=== PATIENT | male | born 1985 | race Two or more races ===

== ENCOUNTER 2018-08-18 21:03 | Emergency (ER) | payer SELFPAY ==
[~2018-08-18] VITALS: Ht 167.6 cm; Wt 68.0 kg
--- NOTE | 2018-08-18 21:05 | NUR ---
PER MD VARNER CALL 911, DR. VARNER INFORMED OF NO ACCEPTING FACILITY. DR VARNER ORDERED STAFF TO CALL 911 ANYWAY.
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
[2018-08-18 21:17] VITALS: BP 203/114
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
--- NOTE | 2018-08-18 21:24 | NUR ---
SPOKE WITH GARTH, GARTH WILL BE WAITING FOR PT AT [facility].
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
--- NOTE | 2018-08-18 21:24 | NUR ---
PT VERBALLY AGREED TO TRANSFER TO [facility]. TRANSFER PAPERWORK SIGNED BY DR VARNER.
--- NOTE | 2018-08-18 21:24 | NUR ---
PT LEFT VIA RESCUE TO [place].
--- NOTE | 2018-08-18 21:35 | NUR ---
[facility] HERE TO SPEAK WITH STAFF.
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
== END 2018-08-18 22:08 | disposition short-term general hospital (02) ==
LOC: ER 21:05
DX: S31.131A Puncture wound of abdominal wall without foreign body, left upper quadrant without penetration into peritoneal cavity, initial encounter (principal); S61.032A Puncture wound without foreign body of left thumb without damage to nail, initial encounter; N18.6 End stage renal disease; Z99.2 Dependence on renal dialysis; W33.01XA Accidental discharge of shotgun, initial encounter; Y93.89 Activity, other specified; Y92.89 Other specified places as the place of occurrence of the external cause; Y99.8 Other external cause status
CPT/HCPCS: 99285; A4606; Z7610